=== PATIENT | female | born 1980 ===

== ENCOUNTER 2021-03-28 11:01 | Outpatient (CLI) | payer SELFPAY ==
[2021-03-28 11:53] LABS: #Eosinphils 0.2 10x3/uL (0.0-0.5); #Monocytes 0.5 10x3/uL (0.0-1.1); #Neutrophils 6.6 10x3/uL (1.5-8.4); %Basophils 0.4 % (0.0-2.0); %Eosinophils 1.5 % (0.0-6.0); %Lymphocytes 25.3 % (18.0-47.0); %Monocytes 5.1 % (0.0-10.0); %Neutrophils 67.5 % (40.0-75.0); Hemoglobin 13.3 g/dL (12.0-15.5); Mean Corpuscular HGB CONC 32.6 g/dL (32.0-36.0); Mean Corpuscular Hemoglobin 28.4 pg (27.0-33.0); Mean Corpuscular Volume 87.2 fl (81.6-98.3); Platelet Count 375 10x3/uL (150-450); RBC Distribution Width 14.6 % (11.5-14.5); Red Blood Cell (RBC) Count 4.68 10x6/uL (3.90-5.03); White Blood Cell (WBC) Count 9.7 10x3/uL (3.5-10.5)
[2021-03-28 12:19] LABS: ALT (SGPT) 45 U/L (8-55); AST (SGOT) 34 U/L (5-34); Albumin 4.3 g/dL (3.5-5.0); Alkaline Phosphatase 61 U/L (40-110); Anion Gap 15 mmol/L (10-20); BUN (Urea Nitrogen) 14 mg/dL (7.0-18.7); Bilirubin, Total 0.3 mg/dL (0.2-1.2); Calc. Creatinine Clearance 0 mL/min (70-130); Calcium 9.8 mg/dL (7.8-10.44); Carbon Dioxide 26 mmol/L (22-29); Chloride 102 mmol/L (98-107); Globulin 3.5 g/dL (2.4-3.5); Glucose 133 mg/dL (70-105); Potassium 4.1 mmol/L (3.5-5.1); Protein, Total 7.8 g/dL (6.0-8.3); Sodium 139 mmol/L (136-145)
[2021-03-28 19:14] LABS: SARS-CoV-2 PCR by NAA Not Detected (NotDetected)
== END 2021-03-28 11:02 | disposition home or self-care (01) ==
LOC: LABBT 11:01
PROVIDERS: ATTEND Surgery
DX: Z01.812 Encounter for preprocedural laboratory examination (principal); K43.9 Ventral hernia without obstruction or gangrene; Z20.822 Contact with and (suspected) exposure to COVID-19
CPT/HCPCS: 80053; 85025; U0003; U0005

== ENCOUNTER 2021-04-02 05:56 | Day surgery (SDC) | payer OTHER ==
[2021-03-20 15:36] VITALS: BMI 67.4
[2021-04-02] MEDS ORDERED: Bupivacaine 0.25% HCL 30 ML VIAL ONE (06:48)
[2021-04-02] MEDS ORDERED: Xylocaine 1% w/ Epi 1:100K 10 ML VIAL ONE (06:48)
[2021-04-02] MEDS ORDERED: Fentanyl 250 MCG/5 ML VIAL ONE (06:59)
[2021-04-02] MEDS ORDERED: SUGAMMADEX SODIUM 200 MG/2 ML VIAL ONE ×2 (07:09)
[2021-04-02] MEDS ORDERED: Albuterol Sulfate HFA (OR ONLY) ONE (07:09)
[2021-04-02] MEDS ORDERED: Fentanyl 100 MCG/2 ML VIAL ONE ×2 (07:13→09:32)
[2021-04-02] MEDS ORDERED: Ketamine 50 MG/ML (10ML VIAL) ONE (07:13)
[2021-04-02] MEDS ORDERED: ceFAZolin 2 GM/Dextrose 50 ML IVPB ONE (07:27)
[2021-04-02] MEDS ORDERED: PROPOFOL 200 MG/20 ML VIAL ONE (07:39)
[2021-04-02] MEDS ORDERED: Glycopyrrolate 0.2 MG/ML 5 ML SYRINGE ONE (07:39)
[2021-04-02] MEDS ORDERED: Ketorolac Tromethamine 30 MG/ML VIAL ONE (07:39)
[2021-04-02] MEDS ORDERED: Rocuronium Bromide 10 MG/ML (10ML VIAL) ONE (07:39)
[2021-04-02] MEDS ORDERED: Lidocaine 1% PF 5 ML VIAL ONE (07:39)
[2021-04-02] MEDS ORDERED: Ondansetron PF 4 MG/2 ML Vial ONE (07:39)
[2021-04-02] MEDS ORDERED: Dexamethasone 20 MG/5 ML VIAL ONE (07:39)
[2021-04-02] MEDS ORDERED: ePHEDrine 50 MG/ML VIAL ONE (07:39)
[2021-04-02] MEDS ORDERED: Promethazine HCl 25 MG/ML VIAL ONE (09:18)
[2021-04-02] MEDS ORDERED: Morphine 4 MG/ML VIAL ONE (11:05)
[2021-04-02] MEDS ORDERED: traMADol HCl 50 MG TAB ONE (11:21)
== END 2021-04-02 12:45 | disposition home or self-care (01) ==
LOC: SDC 05:56
PROVIDERS: ATTEND Surgery
PROC: 0WUF4JZ Supplement Abdominal Wall with Synthetic Substitute, Percutaneous Endoscopic Approach (ICD-10-PCS; principal; 2021-04-02)
DX: K43.9 Ventral hernia without obstruction or gangrene (principal); R05.3 Chronic cough; U09.9 Post COVID-19 condition, unspecified; E66.01 Morbid (severe) obesity due to excess calories; Z68.44 Body mass index [BMI] 60.0-69.9, adult; Z88.6 Allergy status to analgesic agent
CPT/HCPCS: C1713; C1781; J0690; J1100; J1885; J2270; J2405; J2550; J2704; J3010; J3490; S0020